=== PATIENT | female | born 1965 | race Caucasian/White ===

== ENCOUNTER 2022-08-24 13:45 | Inpatient (IN) ==
[2022-08-24 14:55] LABS: Basophils # 0.1 K/mcL (0.0-0.2); Basophils % 0.9 %; Eosinophils # 0.5 K/mcL (0.0-0.6); Eosinophils % 6.3 %; Hematocrit 43.3 % (35.3-44.9); Hemoglobin 14.1 g/dL (11.5-15.4); Immature Granulocytes % 0.1 % (0-4); Lymphocytes # 2.5 K/mcL (0.6-4.6); Lymphocytes % 32.3 %; Mean Corpuscular HGB Conc 32.6 g/dL (31.6-35.5); Mean Corpuscular Hemoglobin 29.1 pg (28.0-33.3); Mean Corpuscular Volume 89.5 fL (83.0-100.0); Mean Platelet Volume 8.2 fL (9.4-12.4); Monocytes # 0.5 K/mcL (0.0-1.3); Monocytes % 6.5 %; Neutrophils # 4.2 K/mcL (1.6-8.9); Platelet Count 269 K/mcL (140-400); Red Blood Count 4.84 M/mcL (3.82-4.97); Red Cell Distribution Width 12.1 % (11.5-14.5); Segmented Neutrophils % 53.9 %; White Blood Count 7.7 K/mcL (4.3-11.1)
[2022-08-24 14:58] LABS: Bacteria,Urine Few per hpf (None-Few); Bilirubin,Urine Negative (Negative); Blood,Urine Small (Negative); Clarity,Urine Turbid (Clear); Color,Urine Yellow (Yellow); Glucose,Urine (UA) Normal (Normal); Ketones,Urine Negative (Negative); Leukocyte Esterase,Urine Negative (Negative); Mucus,Urine Few per lpf (None-Few); Nitrite,Urine Negative (Negative); Protein,Urine Trace mg/dL (Neg-Trace); Specific Gravity,Urine 1.013 (1.010-1.025); Squamous Epithelial Cell,Urine Moderate per hpf (None-Few); Urobilinogen,Urine Normal (Normal); WBC,Urine 0-3 per hpf (0-3)
[2022-08-24 15:03] LABS: Amphetamine Screen,Urine Negative ng/mL (Cutoff=1000); Barbiturate Screen,Urine Negative ng/mL (Cutoff=200); Benzodiazepines Screen,Urine Positive ng/mL (Cutoff=200); Cannabinoid Screen,Urine Negative ng/mL (Cutoff = 50); Cocaine Screen,Urine Positive ng/mL (Cutoff= 300); Opiate Screen,Urine Negative ng/mL (Cutoff=300); Phencyclidine Screen,Urine Negative ng/mL (Cutoff=25)
[2022-08-24 15:12] LABS: Acetaminophen < 10 mcg/mL (10-20); BUN/Creatinine Ratio 17 (6-26); Blood Urea Nitrogen 12 mg/dL (6-20); Calcium 9.5 mg/dL (8.6-10.3); Carbon Dioxide 31 mEq/L (23-29); Chloride 102 mEq/L (98-107); Ethanol < 10 mg/dL (Less than 10); Glucose 83 mg/dL (70-105); Osmolality,Calculated 283 (280-300); Potassium 3.4 mEq/L (3.5-5.1); Salicylate < 2.5 mg/dL (15.0-30.0); Sodium 137 mEq/L (136-145)
[2022-08-24 17:42] LABS: Influenza A PCR Negative (Negative); Influenza B PCR Negative (Negative); Resp. Syncytial Virus PCR Negative (Negative)
[2022-08-24 17:43] LABS: SARS-CoV-2 by PCR (In House) Negative (Negative)
[2022-08-24] MEDS ORDERED: Haloperidol Lactate 5 MG/ML VIAL IM PRN (18:22)
[2022-08-24] MEDS ORDERED: *HR* LORazepam 1 MG TABLET PO PRN (18:22)
[2022-08-24] MEDS ORDERED: MOM Conc 10 ML UD.LIQ PO PRN (18:22)
[2022-08-24] MEDS ORDERED: *HR* LORazepam 2 MG/ML VIAL IM PRN (18:22)
[2022-08-24] MEDS ORDERED: haloperidoL 5 MG TABLET PO PRN (18:22)
[2022-08-24] MEDS: hydrOXYzine pamoate 25 MG CAPSULE PO PRN (20:54)
[2022-08-24] MEDS: traZODone 50 MG TABLET PO PRN (20:54)
[2022-08-24] MEDS: Gabapentin 300 MG CAPSULE PO SCH (20:54)
[2022-08-24] MEDS ORDERED: Mag Hydrox/Al Hydrox/Simeth 30 ML UDC PO PRN (21:45)
[2022-08-25] MEDS: Acetaminophen 325 MG TABLET PO PRN ×2 (07:14→20:49)
[2022-08-25] MEDS: Gabapentin 300 MG CAPSULE PO SCH ×3 (08:35→20:47)
[2022-08-25] MEDS: lisinopriL 10 MG TABLET PO SCH (08:36)
[2022-08-25] MEDS: hydrOXYzine pamoate 25 MG CAPSULE PO PRN ×2 (13:36→20:47)
[2022-08-25] MEDS: Nicotine 21 MG PATCH.TD24 TD SCH (14:00)
[2022-08-25] MEDS: traZODone 50 MG TABLET PO PRN (20:47)
[2022-08-26] MEDS: Acetaminophen 325 MG TABLET PO PRN ×2 (07:11→14:55)
[2022-08-26] MEDS: lisinopriL 10 MG TABLET PO SCH (09:01)
[2022-08-26] MEDS: Gabapentin 300 MG CAPSULE PO SCH (09:02)
[2022-08-26] MEDS: Nicotine 21 MG PATCH.TD24 TD SCH (09:02)
[2022-08-26 10:28] VITALS: BP 133/85; PULSE 76; TEMP 96.7; O2SAT 99
== END 2022-08-26 15:42 | disposition home or self-care (01) | DRG 751 ==
LOC: EMEROOARM 13:45 → 1ANU 18:04 → INTOOBSV 18:04 → 1ANU 19:47
PROVIDERS: ADMIT Psychiatry & Neurology Psychiatry; ATTEND Psychiatry & Neurology Psychiatry